=== PATIENT | female | born 1945 | race Caucasian/White ===

== ENCOUNTER 2019-05-23 07:09 | Observation (INO) | payer OTHER ==
[2019-05-23] VITALS (13 sets, daily range): BP systolic 104–144; BP diastolic 64–79
[~2019-05-23] VITALS: Ht 149.9 cm; Wt 74.8 kg
--- NOTE | ~2019-05-23 | P ---
[facility] [place] [address] PROCEDURE REPORT Name: TR ROLAND [id number] Ad[facility]: 05/23/19 Attend Phys: Benjamin Hopper MD Discharge: Date of : 49 Report #: [id number] THIS REPORT FOR: //name// CC: Benjamin Vanegas [facility] DATE OF SERVICE: 05/23/2019 PREOPERATIVE DIAGNOSES: 1. Atrial fibrillation. 2. Sick sinus syndrome. PROCEDURES PERFORMED: 1. Atrial fibrillation ablation, CPT code 75501. 2. 3D mapping EP, CPT code 02295. 3. Intracardiac echo, CPT code 70143. 4. Focal ablation, CPT code 54187. 5. Preprocedure pacemaker reprogramming, CPT code 45540 and then post-procedure pacemaker reprogramming, CPT code 69121. HISTORY: The patient is a 74-year-old with a history of paroxysmal atrial fibrillation as well as sick sinus syndrome, status post Biotronik pacemaker implantation. She is here for AFib ablation. ANESTHESIA: The patient underwent general anesthesia with no anesthesia related complications. DESCRIPTION OF PROCEDURE: The patient underwent informed consent, where we discussed the details of the procedure including the risks, which include but not limited to bleeding, infection, vascular damage, cardiac perforation as well as stroke or NV. She understood these risks and is willing to proceed. The patient was brought to the EP laboratory in a fasting and sedated state and prepped and draped in a sterile fashion. Her pacemaker was reprogrammed from DDDR to DDD mode. Next after being placed under general anesthesia, I obtained access to the right femoral vein x 3, placing an 8, 9 and 7-Spanish short sheath using the modified Seldinger technique. Next, under fluoroscopy, a decapolar catheter was placed in the coronary sinus for left atrial pacing and recording and an ICE catheter was placed in the right atrium. Next, using intracardiac ultrasound, a 3D geometry was created with evidence of two left and two right-sided pulmonary veins. She also had a very large left atrial appendage. This was merged with the cardiac CT scan and then the patient was systemically heparinized and a transseptal was performed using an SL1 sheath and a [place] needle. The transseptal was straightforward and I exchanged the SL1 sheath for the cryo sheath, which I placed in the left atrium. Next, using a [place] [facility] [address] [place] [address] PROCEDURE REPORT Name: TR ROLAND Room #: 200-I [facility] Jennifer#: [id number] Admission: 05/23/19 Attend Phys: Benjamin Hopper MD Discharge: Date of : 49 Report #: [id number] catheter 3D geometry of the left atrium was created and performing this map, the patient went into atrial fibrillation. I then placed the cryoballoon into the left atrium. The left superior pulmonary vein underwent 3 initial freezes. The first 2 freezes were each of 4 minutes' duration. The third freeze was of 110 seconds duration. I came off early as the esophageal temperature reached -25 degrees. It appeared that the vein was isolated, but it was hard to tell given that the patient was in atrial fibrillation. It appeared that we are most likely seeing large far field left atrial appendage signals. I then turned my attention to the left inferior pulmonary vein. I performed 3 freezes in this vein. I performed 200-second freeze followed by two 4-minute freezes. The vein appeared to be isolated at this point. I then turned my attention to the right superior pulmonary vein. I performed a 4-minute freeze, which resulted in isolation within 72 seconds, but after the balloon was thawed, the vein reconnected. I then performed a second freeze of 180 seconds duration, which resulted in isolation in 33 seconds. I then isolated the right inferior pulmonary vein with a 3-minute freeze, which resulted in isolation within 15 seconds. At this point, I performed a cardioversion and attempted to pace from the left superior pulmonary vein to see if this was isolated. Since I attempted to come off pacing, the patient went back into AFib. A repeat cardioversion was attempted and again when I tried to come off pacing, the patient flipped back into AFib again. Therefore, I performed an additional freeze within this vein of 4 minutes' duration. I therefore decided to also perform a roofline to extend the area of isolation of the left superior pulmonary vein. I performed 2 roof freezes anchored from the left superior pulmonary vein and 2 freezes anchored from the right superior pulmonary vein. I gave the patient amiodarone 150 mg x 1 while I was performing the roofline. After completing the roofline, I have created a detailed 3D voltage map and it appeared that all veins were isolated and the roof appeared to be isolated as well. We therefore performed a cardioversion and all the veins appeared to be isolated. There were still these large signals noted in the left superior pulmonary vein, but these clearly did not captured and appeared to be far field left atrial appendage signals. As such, the procedure was concluded. Using intracardiac ultrasound, I verified there was no pericardial effusion. The patient received systemic protamine and once ACT was within acceptable range, catheters and sheaths were pulled. Hemostasis was obtained. The pacemaker was programmed to its nominal settings and we did extend the AV delays to decrease her right ventricular pacing. CONCLUSIONS: 1. Successful fibrillation ablation. 2. Successful creation of roofline. 3. Successful pacemaker reprogramming. By: [id number] Benjamin Hopper MD /nt
--- NOTE | ~2019-05-23 | D ---
[facility] [place] [address] DISCHARGE SUMMARY Name: TR ROLAND Room #: 200-I [facility] Awais Rodriguez#: [id number] Admission: 05/23/19 Attend Phys: Benjamin Hopper MD Discharge: 05/24/19 Date of : 49 Report #: [id number] THIS REPORT FOR: //name// CC: Benjamin Dos Santos DATE OF SERVICE: 05/24/2019 DISCHARGE DIAGNOSES: 1. Atrial fibrillation. 2. Sick sinus syndrome. PROCEDURES PERFORMED: AFib ablation. HISTORY OF PRESENT ILLNESS: The patient is a 74-year-old with history of recurrent AFib despite antiarrhythmic drug therapy, here for an ablation. She underwent successful AFib ablation with no procedure-related complications. HOSPITAL COURSE: The patient was monitored in the CCU overnight and did well. She had some eye discomfort the day after the procedure, possibly had a little corneal abrasion from scratching her eye. This improved with ibuprofen. She had some mild inspiratory chest pain, which is common for AFib ablation, but denied any fevers or chills, shortness of breath, PND or orthopnea. PHYSICAL EXAMINATION: GENERAL: No acute distress. HEART: Regular rate and rhythm. LUNGS: Clear to auscultation bilaterally. ABDOMEN: Soft, nontender. Right groin with no bruising or hematoma. As such, she was deemed stable for discharge home. She will continue with her same cardiac medications including apixaban, dronedarone, diltiazem as well as her other home medications. She will follow up in my clinic in 3 months. By: [id number] Benjamin Hopper MD /nt
[2019-05-23 07:06] LABS: ABSOLUTE NEUTROPHILS 4.3 thou/uL (1.4-8.2); BASOPHILS 1.2 % (0.0-2.0); EOSINOPHILS 1.6 % (0.0-3.0); HEMATOCRIT 49.3 % (37.0-47.0); LYMPHOCYTES 23.9 % (24.0-44.0); MCH 28.2 pg (26.0-34.0); MCHC 32.5 g/dL (28.0-37.0); MCV 86.8 fL (80.0-100.0); MONOCYTES 8.1 % (1.0-8.0); PLATELET COUNT 171 thou/uL (150-400); POLYS 65.2 % (36.0-66.0); RBC 5.67 mil/uL (4.20-5.00); RDW 14.6 % (10.5-14.5); WBC 6.6 thou/uL (4.0-11.0)
[2019-05-23] MEDS ORDERED: ELIQUIS5 MG PO (07:19)
[2019-05-23] MEDS ORDERED: ASPIR-LOW81 MG PO (07:20)
[2019-05-23] MEDS ORDERED: MULTAQ400 MG PO (07:21)
[2019-05-23] MEDS ORDERED: COENZYME Q10100 MG PO (07:22)
[2019-05-23] MEDS ORDERED: FOLIC ACID0.8 M1 PO (07:23)
[2019-05-23 07:25] LABS: CALCIUM 9.9 mg/dL (8.5-10.1); CREATININE 0.8 mg/dL (0.6-1.0); POTASSIUM 3.8 mmol/L (3.5-5.1)
[2019-05-23] MEDS ORDERED: DILTIAZEM ER180 M2 PO (07:25)
[2019-05-23] MEDS ORDERED: FUROSEMIDE 20 M20 MG PO (07:26)
[2019-05-23] MEDS ORDERED: NEURONTIN100 MG PO (07:29)
[2019-05-23 07:30] LABS: ALBUMIN 4.3 g/dL (3.4-5.0); TOTAL BILIRUBIN 0.6 mg/dL (<0.1-1.0); TOTAL PROTEIN 8.3 g/dL (6.4-8.2)
[2019-05-23] MEDS ORDERED: SUPER THERAVIT1 EACH PO (07:30)
[2019-05-23] MEDS ORDERED: COZAAR 25 MG TA25 M1 PO (07:30)
[2019-05-23] MEDS ORDERED: FISH OIL 1,2001 EAC6 PO (07:31)
[2019-05-23] MEDS ORDERED: OMEPRAZOLE 20 M20 M1 PO (07:32)
[2019-05-23] MEDS ORDERED: POTASSIUM20 PO (07:33)
[2019-05-23] MEDS ORDERED: ROSUVASTATIN CA20 MG PO (07:34)
[2019-05-23] MEDS ORDERED: TRAMADOL 50 MG50 MG PO (07:35)
[2019-05-23] MEDS ORDERED: VITAMIN D22000 UNIT PO (07:35)
[2019-05-23 07:58] LABS: PROTIME 10.7 Seconds (9.3-11.4)
--- NOTE | 2019-05-23 19:22 | NUR ---
TO UNIT FROM RECOVERY BY BED. VSS. GROIN SITE CDI. AT BEDSIDE. SR PER TELE, V-PACED. C/O RED, ITCHY EYES, NOTICIBLY REDDENED AND SLIGHTLY SWOLLEN. COLD, WET WASHCLOTH PLACED OVER HER EYES. REDNESS AND SWELLING GRADUALLY DIMINISHED BUT C/O RIGHT EYE PAIN, LIKE THAT OF A GRIT OF SAND IN HER EYE, PERSISTED.DR. DAVENPORT CALLED AND ORDER FOR IBUPROFEN RECEIVED.
[2019-05-24 00:01] VITALS: BP 97/61
[2019-05-24 04:45] VITALS: BP 116/59
--- NOTE | 2019-05-24 06:02 | NUR ---
Pt off bedrest and up in room sitting in chair for a few hours, bk foy'zena and pt voiding in bathroom, prn pain meds given for back pain and swollen burning eyes, swelling down this amand pt able to open both eyes on her own, shmuel r groin a l wrist dressings cdi, hopes to go home today, will con't to monitor per ppoc.
[2019-05-24 08:05] VITALS: BP 116/59; BP 122/58
[2019-05-24 08:16] VITALS: BP 116/59
== END 2019-05-24 09:30 | disposition home or self-care (01) ==
LOC: CATH 07:09 → 2N 13:06 → CATH 16:52 → ENTRNSPT 05-24 09:15 → EDTRNSPTSTS 05-24 09:16 → 2N 05-24 09:30
PROVIDERS: ADMIT Internal Medicine Cardiovascular Disease
DX: I48.0 Paroxysmal atrial fibrillation (principal); I49.5 Sick sinus syndrome
CPT/HCPCS: 62110; 62900; 65020; 65040; 70005

== ENCOUNTER → 2019-09-25 | Outpatient (CLI) | payer OTHER ==
[~2019-09-25] MED LIST: ASPIR-LOW81 MG PO; COENZYME Q10100 MG PO; COZAAR 25 MG TA25 M1 PO; DILTIAZEM ER180 M2 PO; ELIQUIS5 MG PO; FISH OIL 1,2001 EAC6 PO; FOLIC ACID0.8 M1 PO; FUROSEMIDE 20 M20 MG PO; MULTAQ400 MG PO; NEURONTIN100 MG PO; NEURONTIN300 MG PO; NIGHTTIME SLEEP50 M1 PO; OMEPRAZOLE 20 M20 M1 PO; OMEPRAZOLE40 MG PO; POTASSIUM20 PO; ROSUVASTATIN CA20 MG PO; SUPER THERAVIT1 EACH PO; TRAMADOL 50 MG50 MG PO; VITAMIN D22000 UNIT PO
== END ==
LOC: SJCVC 13:00
PROVIDERS: ATTEND Internal Medicine Cardiovascular Disease
DX: Z45.018 Encounter for adjustment and management of other part of cardiac pacemaker (principal); R00.1 Bradycardia, unspecified; I48.0 Paroxysmal atrial fibrillation; I48.3 Typical atrial flutter; I25.10 Atherosclerotic heart disease of native coronary artery without angina pectoris; G47.33 Obstructive sleep apnea (adult) (pediatric); I10 Essential (primary) hypertension; E78.5 Hyperlipidemia, unspecified; Z82.49 Family history of ischemic heart disease and other diseases of the circulatory system; Z79.82 Long term (current) use of aspirin; Z79.899 Other long term (current) drug therapy; Z87.891 Personal history of nicotine dependence

== ENCOUNTER 2019-10-21 06:31 | Outpatient (CLI) | payer OTHER ==
[2019-10-21] VITALS (10 sets, daily range): BP systolic 115–151; BP diastolic 66–86
[~2019-10-21] VITALS: Ht 149.9 cm; Wt 75.3 kg
[~2019-10-21 06:31] MED LIST changes: -NEURONTIN300 MG PO; -NIGHTTIME SLEEP50 M1 PO; -OMEPRAZOLE40 MG PO
[2019-10-21 07:34] LABS: ABSOLUTE NEUTROPHILS 3.9 thou/uL (1.4-8.2); EOSINOPHILS 1.8 % (0.0-3.0); HEMATOCRIT 43.7 % (37.0-47.0); HEMOGLOBIN 14.7 gm/dL (12.0-15.0); LYMPHOCYTES 25.4 % (24.0-44.0); MCH 29.2 pg (26.0-34.0); MCHC 33.5 g/dL (28.0-37.0); MONOCYTES 8.1 % (1.0-8.0); PLATELET COUNT 153 thou/uL (150-400); POLYS 63.7 % (36.0-66.0); RBC 5.03 mil/uL (4.20-5.00); RDW 14.8 % (10.5-14.5); WBC 6.1 thou/uL (4.0-11.0)
[2019-10-21 07:42] LABS: CREATININE 0.8 mg/dL (0.6-1.0); POTASSIUM 4.3 mmol/L (3.5-5.1)
[2019-10-21 07:48] LABS: ALBUMIN 3.8 g/dL (3.4-5.0); TOTAL BILIRUBIN 0.5 mg/dL (0.2-1.0); TOTAL PROTEIN 7.3 g/dL (6.4-8.2)
[2019-10-21 07:51] LABS: APTT 26.4 Seconds (24.5-32.8); PROTIME 10.3 Seconds (9.3-11.4)
[2019-10-21] MEDS ORDERED: NIGHTTIME SLEEP50 M1 PO (08:05)
[2019-10-21] MEDS ORDERED: NEURONTIN300 MG PO (08:08)
[2019-10-21] MEDS ORDERED: OMEPRAZOLE40 MG PO (08:11)
--- NOTE | 2019-10-21 19:18 | NUR ---
PT ADMITED FROM [employer]. ADMISSION HX AND ASSESSMENT COMPLETED. RIGHT AND LEFT GROIN INCISION C/D/I. NO HEMATOMA NOTED. VSS. DENIED HAVING PAIN OR DISCOMFORT. NSR ON TELE. WILL CONTINUE TO MONITOR.
[2019-10-22 04:28] VITALS: BP 114/66
--- NOTE | 2019-10-22 05:26 | NUR ---
ASSUMED PT CARE AT 1900. PT IS ALERT AND ORIENTED. NO SIGN OF DISTRESS NOTED IN PT. GROIN SITE IS INTACT, CLEAN AND DRY. DENIES ANY PAIN. PT IS AMBULATORY. ASSESSMENT COMPLETED AND DOCUMENTED. SCHEDULED MEDS ADMINISTERED TO PT. NO ACUTE EVENTS OVER NIGHT. CONTINUE TO MONITOR. DENIES ANY NEEDS AT THIS TIME.
[2019-10-22 07:02] VITALS: BP 126/65
--- NOTE | 2019-10-22 09:44 | P ---
[facility] [place] [address] PROCEDURE REPORT Name: TR ROLAND [id number] Admission: 10/21/19 Attend Phys: Benjamin Hopper MD Discharge: Date of : 49 Report #: [id number] THIS REPORT FOR: cc: Romina Dos Santos,Benjamin Benavides MD ~ CC: Benjamin Dos Santos DATE OF SERVICE: 10/21/2019 PREOPERATIVE DIAGNOSES: 1. Atrial fibrillation. 2. Atrial flutter. 3. Sick sinus syndrome. POSTOPERATIVE DIAGNOSES: 1. Atrial fibrillation. 2. Atrial flutter. 3. Sick sinus syndrome. PROCEDURES PERFORMED: 1. Atrial fibrillation ablation, CPT code 62060. 2. 3D mapping, CPT code 74949. 3. Intracardiac echo, CPT code 06338. 4. Second pathway ablation, 84210. 5. Dionne-procedure programming, 96421. 6. Post-procedure pacemaker reprogramming, 60299. HISTORY: The patient is a 74-year-old female status post AFib ablation back in May 2019, who has had clinical recurrence. She is here for repeat ablation. ANESTHESIA: The patient underwent general anesthesia with no anesthesia-related complications. DESCRIPTION OF PROCEDURE: The patient underwent informed consent. We discussed the details of the procedure including the risks, which include but not limited to bleeding, vascular damage, cardiac perforation, stroke, ND as well as damage to the sauk-suiattle conduction system requiring permanent pacemaker. She understood these risks and is willing to proceed. The patient was brought to the EP laboratory in fasting and sedated state. She was prepped and draped in a sterile fashion. Her Biotronik pacemaker was interrogated prior to the procedure and reprogrammed for the ablation: Next, I obtained access to the right femoral vein x 3 and the left femoral vein x 1. In the right femoral vein, I placed two 8-Belgian short sheaths and a 9-Belgian short [facility] [address] [place] [address] PROCEDURE REPORT Name: ASUNCIONTR L Room #: 204-P [facility]#: [id number] Admission: 10/21/19 Attend Phys: Benjamin Hopper MD Discharge: Date of : 49 Report #: [id number] sheath and in the left femoral vein, I placed a 7-Belgian short sheath. Under fluoroscopy, decapolar catheter was placed into the coronary sinus, which was utilized for left atrial pacing and recording. ICE catheter was placed into the right atrium. Next, the patient was systemically heparinized and a transseptal was performed using an SL1 sheath and a Callands needle. This was straightforward. I advanced the SL1 sheath into the left atrium and then placed a Biosense Bedoya PentaRay catheter into the left atrium. Next, a detailed 3D voltage map and geometry was created, which showed that all 4 pulmonary veins remained isolated and the posterior roof region also remained isolated. Next, I removed my Agilis catheter and placed a SmartTouch ThermoCool catheter into the left atrium. I then isolated the posterior wall of the left atrium, bleeding along the posterior roof along the jm of the right and left veins and along the inferior aspect of the posterior wall. This was performed at 40 fortune and the esophageal temperature was closely monitored. After completion of my ablation, I went back in with the PentaRay catheter and now there was evidence of left atrial posterior wall isolation. ATRIAL FLUTTER ABLATION: Next, I pulled over to the right atrium and via a ramp sheath, cavotricuspid isthmus dependent flutter ablation was performed. Pre-ablation, the transisthmus conduction time was 50 milliseconds. Ablation was performed at 70 fortune and 60 degrees. Post-ablation, there was evidence of bidirectional block with a transisthmus conduction time of 145 milliseconds. As such, the procedure was concluded. The patient received systemic protamine and once ACT was within acceptable range, catheters and sheaths were pulled and hemostasis was obtained. The Biotronik pacemaker was re-interrogated and found to be functioning normally and it was programmed back to its nominal settings. CONCLUSIONS: 1. Successful AFib ablation with posterior wall isolation of the left atrium. 2. Successful atrial flutter ablation with evidence of bidirectional block. <ELECTRONICALLY SIGNED> By: Benjamin Hopper MD 10/22/19 [id number] Benjamin Hopper MD /nt
[2019-10-22 10:41] VITALS: BP 126/65
--- NOTE | 2019-10-22 10:49 | NUR ---
ASSUMED CARE APPROX 0700. PT ALERT AND ORIENTED X4. ASSESSENT CHARTED AND VSS. PT TO BE DISCHARGED TODAY. LT AND RT POST CATH GROIN SITES C/D/I AND HEMATOMA PRESENT. DISCHARGE INSTRUCTIONS/PACKET DISCUSSED WITH PT. PT DENIES ANY QUESTIONS OR CONCERNS REGARDING DISCHARGE INSTRUCTIONS. TELE MONITOR TAKEN OFF OF PT. IV D/C'D. PT ESCORTED OUT TIMELY.
[2019-10-22 10:55] VITALS: BP 126/65
== END 2019-10-22 11:30 | disposition home or self-care (01) ==
LOC: CATH 06:31 → 2N 16:54 → CATH 21:25
PROVIDERS: ATTEND Internal Medicine Cardiovascular Disease
DX: I48.91 Unspecified atrial fibrillation (principal); I48.92 Unspecified atrial flutter; I49.5 Sick sinus syndrome; I10 Essential (primary) hypertension; I25.2 Old myocardial infarction; E78.5 Hyperlipidemia, unspecified; I25.10 Atherosclerotic heart disease of native coronary artery without angina pectoris; G47.33 Obstructive sleep apnea (adult) (pediatric); Z98.890 Other specified postprocedural states; Z79.899 Other long term (current) drug therapy; Z79.01 Long term (current) use of anticoagulants; Z91.040 Latex allergy status; Z88.8 Allergy status to other drugs, medicaments and biological substances; Z11.59 Encounter for screening for other viral diseases
CPT/HCPCS: 10081; 62110; 62900; 65020; 65040; 70005

== ENCOUNTER → 2020-01-21 | Outpatient (CLI) | payer OTHER ==
[~2020-01-21] MED LIST changes: +NEURONTIN300 MG PO; +NIGHTTIME SLEEP50 M1 PO; +OMEPRAZOLE40 MG PO
== END ==
LOC: SJCVC 14:39
PROVIDERS: ATTEND Internal Medicine Cardiovascular Disease
DX: I44.4 Left anterior fascicular block (principal); R94.31 Abnormal electrocardiogram [ECG] [EKG]; I48.0 Paroxysmal atrial fibrillation; I48.3 Typical atrial flutter; I25.10 Atherosclerotic heart disease of native coronary artery without angina pectoris; I10 Essential (primary) hypertension; E78.5 Hyperlipidemia, unspecified; Z82.49 Family history of ischemic heart disease and other diseases of the circulatory system; Z87.891 Personal history of nicotine dependence; Z79.899 Other long term (current) drug therapy